=== PATIENT | female | born 1985 | race Caucasian/White ===

== ENCOUNTER 2020-04-12 21:14 | Inpatient (IN) ==
[2020-04-13] MEDS ORDERED: OXYTOCIN 30 UNITS/500 ML BAG IV PRN ×2 (01:04)
--- NOTE | 2020-04-13 01:08 | History & Physical Report ---
Date of Service April 13, 2020 Assessment & Plan (1) Gestational hypertension: Admission and Anticipated Discharge Date Admission Date: Admit to L&D. Labs, EFM/toco. Will insert crouch bulb for cervical ripening and use pitocin. History of Present Illness Chief Complaint: IOL Primary Care Provider: Johana Ferrari MD 34yo @ 36 08/27 with [place], here for IOL. AMA, CF carrier. Allergies Allergy/AdvReac Type Severity Reaction Status Date / Time No Known Allergies Allergy Verified 04/12/20 11:01 Home Medications Home Medications Medication Instructions Recorded Confirmed Type albuterol sulfate INHALATION PRN 05/26/19 04/12/20 History prenat.vits,pj,uoq-ddcv-ytaru 1 tab PO DAILY 05/26/19 04/12/20 History Patient History Medical History Advanced maternal age, primigravida Asthma Breast mass, left Encounter for anatomic survey H/O bladder infections Hx of varicella Missed Surgical History History of breast lump/mass excision History of tonsillectomy and adenoidectomy [place] teeth removed Family History Mother Lupus Antiphospholipid antibody positive Heart disease Hypertension Dyslipidemia Kidney disease Grandmother (Maternal) Diabetes Heart disease Hypertension Dyslipidemia Breast cancer Bladder cancer Grandfather (Maternal) Heart disease Hypertension Dyslipidemia Coronary heart disease Father Hypertension Dyslipidemia Hypothyroid Grandmother (Paternal) Adrenal cancer Social History Smoking Status: Never smoker Hx Alcohol Use: No Hx Substance Use: No Preferred Language: Lithuanian marital status: marital status details: Twan Lopez (33) [phone] Current Living Situation: Spouse Current Living Situation Comment: Spouse and 1 dog current occupational status: employed current occupation: [employer] Feels Safe at Home: Yes Safety Concerns: Feels Safe At This Time Review of Systems All systems reviewed & are unremarkable except as noted in HPI & below Physical Exam Physical Exam: FHT Cat 1 [place] rare SVE C/T/H Constitutional: WD/WN, vitals as above Respiratory: normal respiratory effort, lungs clear to auscultation no respiratory distress Cardiovascular: Rate/Rhythm: regular rate and regular rhythm Gastrointestinal (Abdomen): Inspection/Auscultation: abdomen normal to inspection Percussion/Palpation: abdomen soft; abdomen nontender Gravid. No s/s chorio or abruption. Skin: no rashes, warm and dry Psychiatric: A+Ox3, euthymic affect Results & Data ([facility]) Vital Signs (Past 12 Hours) Vital Signs Temp Pulse Resp BP 04/13/20 00:48 64 130/75 04/13/20 00:33 68 145/90 H 04/13/20 00:18 64 128/82 04/13/20 00:03 59 L 126/73 04/12/20 23:49 81 159/90 H 04/12/20 23:33 63 127/79 04/12/20 23:18 65 129/83 04/12/20 23:03 68 134/83 04/12/20 22:38 70 129/81 04/12/20 22:33 67 136/88 04/12/20 22:27 73 135/79 04/12/20 22:22 72 135/83 04/12/20 22:19 74 161/96 H 04/12/20 22:12 72 148/93 H 04/12/20 22:07 74 150/98 H 04/12/20 22:02 74 148/98 H 04/12/20 21:58 68 170/95 H 04/12/20 21:52 90 165/102 H 04/12/20 21:47 86 161/108 H 04/12/20 21:42 74 157/101 H 04/12/20 21:37 83 158/105 H 04/12/20 21:33 80 162/100 H 04/12/20 21:30 36.6 C 77 18 170/88 H 04/12/20 21:27 77 170/88 H Coding Level of Care Code None Diagnoses Gestational hypertension O13.9
--- NOTE | 2020-04-13 01:27 | Labor Progress Brief Note ---
Date of Service April 13, 2020 Subjective Vasquez balloon inserted, small blood-tinged mucus. Tolerated well. Results & Data ([facility]) Vital Signs (Past 12 Hours) Vital Signs Temp Pulse Resp BP 04/13/20 00:48 64 130/75 04/13/20 00:33 68 145/90 H 04/13/20 00:18 64 128/82 04/13/20 00:03 59 L 126/73 04/12/20 23:49 81 159/90 H 04/12/20 23:33 63 127/79 04/12/20 23:18 65 129/83 04/12/20 23:03 68 134/83 04/12/20 22:38 70 129/81 04/12/20 22:33 67 136/88 04/12/20 22:27 73 135/79 04/12/20 22:22 72 135/83 04/12/20 22:19 74 161/96 H 04/12/20 22:12 72 148/93 H 04/12/20 22:07 74 150/98 H 04/12/20 22:02 74 148/98 H 04/12/20 21:58 68 170/95 H 04/12/20 21:52 90 165/102 H 04/12/20 21:47 86 161/108 H 04/12/20 21:42 74 157/101 H 04/12/20 21:37 83 158/105 H 04/12/20 21:33 80 162/100 H 04/12/20 21:30 36.6 C 77 18 170/88 H 04/12/20 21:27 77 170/88 H Coding Level of Care Code None
[2020-04-13 01:42] LABS: Hematocrit (blood only) 40.6 % (37-47); Hemoglobin 13.6 g/dL (12.0-16.0); Mean Corpuscular Hemoglobin 29.8 pg (25-34); Mean Corpuscular Volume 88.8 fL (80-100); Mean Platelet Volume 12.3 fL (7.4-10.4); Platelet Count 177 K/uL (130-400); RDW Coefficient of Variation 13.3 % (11.5-14.5); RDW Standard Deviation 43.1 fL (36.4-46.3); Red Blood Count 4.57 M/uL (4.2-5.4); White Blood Count 10.37 K/uL (4.8-10.8)
[2020-04-13 01:45] LABS: Mean Corpuscular Hgb Conc 33.5 g/dL (32-36)
[2020-04-13] MEDS: LACTATED RINGER'S 1,000 ML IV PRN ×4 (03:25→22:37)
[2020-04-13 14:42] LABS: Basophils # (auto) 0.02 K/uL (0-0.2); Basophils % (auto) 0.1 %; Hematocrit (blood only) 41.6 % (37-47); Hemoglobin 14.1 g/dL (12.0-16.0); Immature Granulocytes # (auto) 0.09 K/uL (0.00-0.02); Immature Granulocytes % (auto) 0.6 %; Lymphocytes # (auto) 1.77 K/uL (1.2-3.4); Lymphocytes % (auto) 12.7 %; Mean Corpuscular Hemoglobin 30.1 pg (25-34); Mean Corpuscular Volume 88.9 fL (80-100); Monocytes # (auto) 0.88 K/uL (0.11-0.59); Monocytes % (auto) 6.3 %; Neutrophils # (auto) 11.22 K/uL (1.4-6.5); Neutrophils % (auto) 80.3 %; Platelet Count 161 K/uL (130-400); RDW Coefficient of Variation 13.3 % (11.5-14.5); RDW Standard Deviation 42.8 fL (36.4-46.3); Red Blood Count 4.68 M/uL (4.2-5.4); White Blood Count 13.98 K/uL (4.8-10.8)
[2020-04-13 14:46] LABS: Mean Corpuscular Hgb Conc 33.9 g/dL (32-36)
[2020-04-13 14:59] LABS: Albumin Level 2.5 gm/dl (3.4-5.0); Calcium 8.7 mg/dl (8.5-10.1); Creatinine Clr Calc Pharmacy 112.4 ml/min; Est GFR (African American) 121.7; Potassium 3.4 mmol/L (3.5-5.1)
[2020-04-13 15:02] LABS: Albumin Globulin Ratio 0.6 (0.9-2); Bilirubin,Total 0.5 mg/dl (0.2-1); Globulin 3.9 gm/dl (2.5-4.0); Total Protein 6.4 gm/dl (6.4-8.2)
--- NOTE | 2020-04-13 20:02 | Labor Progress Brief Note ---
Date of Service April 13, 2020 Subjective Getting tired from being up at the bedside. -WILLIS, vision change. Had severe range earlier when nursing change of shift occurred likely due to anxiety, repeat was mild range Assessment & Plan (1) Gestational hypertension: Continue monitoring BPs, no s/s pre-eclampsia had severe range likely due to anxiety with change of shift, normal repeats since Labor -pit just increased to 19, will continue to augment -s/p arom at earlier check Present on Admission?: Yes Admission and Anticipated Discharge Date Admission Date: April 13, 2020 Physical Exam Constitutional: AAO x 3, NAD Genitourinary: Manual OB Exam: + cervical dilation 3 cm, + cervical effacement 50% and + station (-3) OB Exam Monitor Tracing: + external uterine monitor used (irreg ctx) and + category I (145/mod/+accel/-decel) Results & Data ([facility]) Vital Signs (Past 12 Hours) Vital Signs Temp Pulse Resp BP 04/13/20 19:51 75 141/93 H 04/13/20 19:38 99 H 141/91 H 04/13/20 19:21 101 H 141/89 H 04/13/20 19:01 98.2 F 85 18 168/95 H 04/13/20 19:00 18 04/13/20 18:30 22 04/13/20 18:08 76 150/74 H 04/13/20 18:00 20 04/13/20 17:38 65 144/85 H 04/13/20 17:30 22 04/13/20 17:07 63 139/81 04/13/20 17:00 98.1 F 20 04/13/20 16:30 18 04/13/20 16:07 71 123/69 04/13/20 16:00 20 04/13/20 15:38 67 127/67 04/13/20 15:30 20 04/13/20 15:07 69 142/88 H 04/13/20 15:00 97.7 F 22 04/13/20 14:30 18 04/13/20 13:35 67 154/88 H 04/13/20 13:30 18 04/13/20 12:30 16 04/13/20 12:27 69 118/66 04/13/20 12:00 13 04/13/20 11:30 18 04/13/20 11:27 62 148/86 H 04/13/20 11:00 18 04/13/20 10:30 16 04/13/20 10:29 66 129/72 04/13/20 09:30 18 04/13/20 09:27 68 137/87 04/13/20 09:00 20 04/13/20 08:30 18 04/13/20 08:27 67 149/77 H Coding Level of Care Code None Diagnoses Gestational hypertension O13.9
[2020-04-13] MEDS ORDERED: CALCIUM CARBONATE 500 MG CHEWABLE TAB PO PRN (21:17)
[2020-04-13] MEDS ORDERED: CALCIUM CARBONATE 500 MG CHEWABLE TAB ONE (21:20)
--- NOTE | 2020-04-13 21:40 | Labor Progress Brief Note ---
Date of Service April 13, 2020 Subjective Pt endorsing some nausea and chest discomfort while laying down, unable to note quality. Denies chest pain or SOB. Tums provided and pt repositioned sitting up, nausea improved. Notes ctx are beginning to worsen Assessment & Plan (1) Gestational hypertension: Chest discomfort appears MSK related due to reproducibility. VSS, exam wnl, O2 sat 100%. Other symptoms also improving with pt repositioning and tums, will continue to monitor BP elevated with repositioning, will re-check Present on Admission?: Yes Admission and Anticipated Discharge Date Admission Date: April 13, 2020 Physical Exam Respiratory: normal respiratory effort; no labored breathing Auscultation: lungs clear to auscultation bilaterally Cardiovascular: RRR, no murmur, no edema Chest (Breasts): Additional Comments: Able to reproduce location of discomfort on R midsternal border, no masses palpated Results & Data ([facility]) Vital Signs (Past 12 Hours) Vital Signs Temp Pulse Resp BP Pulse Ox 04/13/20 21:32 84 100 04/13/20 21:25 80 165/98 H 04/13/20 21:06 80 136/84 04/13/20 20:52 98.1 F 64 18 137/78 04/13/20 20:36 67 139/80 04/13/20 20:21 71 133/81 04/13/20 20:07 67 18 138/81 04/13/20 19:51 75 141/93 H 04/13/20 19:38 99 H 141/91 H 04/13/20 19:21 101 H 141/89 H 04/13/20 19:01 98.2 F 85 18 168/95 H 04/13/20 19:00 18 04/13/20 18:30 22 04/13/20 18:08 76 150/74 H 04/13/20 18:00 20 04/13/20 17:38 65 144/85 H 04/13/20 17:30 22 04/13/20 17:07 63 139/81 04/13/20 17:00 98.1 F 20 04/13/20 16:30 18 04/13/20 16:07 71 123/69 04/13/20 16:00 20 04/13/20 15:38 67 127/67 04/13/20 15:30 20 04/13/20 15:07 69 142/88 H 04/13/20 15:00 97.7 F 22 04/13/20 14:30 18 04/13/20 13:35 67 154/88 H 04/13/20 13:30 18 04/13/20 12:30 16 04/13/20 12:27 69 118/66 04/13/20 12:00 13 04/13/20 11:30 18 04/13/20 11:27 62 148/86 H 04/13/20 11:00 18 04/13/20 10:30 16 04/13/20 10:29 66 129/72 Coding Level of Care Code None Diagnoses Gestational hypertension O13.9
[2020-04-13] MEDS ORDERED: BUPIVACAINE 0.25% 30 ML VIAL ONE (21:51)
[2020-04-13] MEDS ORDERED: fentaNYL citrate 100 MCG/2 ML VIAL ONE (21:51)
[2020-04-13] MEDS ORDERED: ePHEDrine sulfate 50 MG/ML AMP ONE (21:51)
[2020-04-13] MEDS ORDERED: fentaNYL 2MCG/ML ROPIV 1.25MG/ML 100 ML BAG EPI ONE (21:52)
[2020-04-13] MEDS ORDERED: ONDANSETRON INJ 2 MG/ML 2 ML VIAL IV PRN (22:16)
[2020-04-13] MEDS ORDERED: DiphenhydrAMINE HCL 50 MG/ML VIAL IV PRN (22:16)
[2020-04-13] MEDS ORDERED: ePHEDrine sulfate 50 MG/ML AMP IV PRN (22:16)
[2020-04-13] MEDS ORDERED: PROMETHAZINE HCL 25 MG in SODIUM CHLORIDE 0.9% 50 ML IV PRN (22:16)
[2020-04-13] MEDS ORDERED: NALOXONE HCL 0.4 MG/1 ML VIAL/CARP IV PRN (22:16)
[2020-04-13] MEDS ORDERED: NALOXONE HCL 1 MG in SODIUM CHLORIDE 0.9% 1000ML 1,000 ML IV PRN (22:16)
[2020-04-13] MEDS ORDERED: fentaNYL 2MCG/ML ROPIV 1.25MG/ML 100 ML BAG EPI PRN (22:16)
--- NOTE | 2020-04-13 22:16 | Anesthesiology Consultation ---
Date of Service April 13, 2020 Assessment & Plan ASA ASA2 Proposed Anesthesia Anesthesia Type: Labor Epidural Risk / Benefits Reviewed With: PT / POA / Parent / Guardian, Accepts Plan and Informed Consent Obtained History Height/Weight Height: 5 ft 4 in Weight: 85.729 kg Allergies Allergy/AdvReac Type Severity Reaction Status Date / Time No Known Allergies Allergy Verified 04/12/20 11:01 Medications Home Medications Medication Instructions Recorded Confirmed Last Taken prenat.vits,pj,rbp-rriw-eejdf 1 tab PO DAILY 05/26/19 04/13/20 04/12/20 albuterol sulfate 0.63 mg INHALATION QID PRN 04/13/20 04/13/20 Unknown Active Medications Generic Name Dose Route Start Last Admin Trade Name Freq PRN Reason Stop Dose Admin Lactated Ringer's 1,000 mls @ 125 mls/hr 04/13/20 01:04 04/13/20 22:37 Lr IV 04/15/20 01:03 125 mls/hr .Q8H PRN Administration L&D Protocol Protocol Oxytocin 30 units in 500 mls @ 20 mls/hr 04/13/20 01:04 04/13/20 20:55 Pitocin IV 04/15/20 01:03 1.2 units/hr .Q24H PRN 20 mls/hr Labor Induction/Augmentation Titration Protocol 1.2 UNITS/HR Past Medical History Medical History Advanced maternal age, primigravida Asthma Breast mass, left Encounter for anatomic survey H/O bladder infections Hx of varicella Missed Exercise / Class Metabolic Activity II 4-5 Yardwork/Stairs/Walk up hill Past Family History Family History Mother Lupus Antiphospholipid antibody positive Heart disease Hypertension Dyslipidemia Kidney disease Grandmother (Maternal) Diabetes Heart disease Hypertension Dyslipidemia Breast cancer Bladder cancer Grandfather (Maternal) Heart disease Hypertension Dyslipidemia Coronary heart disease Father Hypertension Dyslipidemia Hypothyroid Grandmother (Paternal) Adrenal cancer Past Surgical History Surgical History History of breast lump/mass excision History of tonsillectomy and adenoidectomy [place] teeth removed Past Anesthesia History No Hx of Anesthesia Complications and No Family Hx of Anesthesia Complications History of PONV No Hx of PONV and No Hx of Motion Sickness Social History Smoking Status: Never smoker Hx Alcohol Use: No Hx Substance Use: No Review of Systems denies fever/cough/ colds/ chest pain/ SOB/ PATTIE Constitutional: no fever and no chills Respiratory: no cough and no dyspnea denies PATTIE Cardiovascular: no chest pain and no dyspnea on exertion Physical Exam Vital Signs Last Vital Signs Temp 36.7 C 04/13/20 20:52 Pulse 88 04/13/20 22:39 Resp 18 04/13/20 20:52 BP 131/78 04/13/20 22:39 Pulse Ox 98 04/13/20 22:35 ENMT Mouth: no TMJ abnormality and no dentition abnormality Thyromental Distance: > or= 3.5 Finger Breadths Mallampati Class: II Neck neck extension not limited Respiratory normal respiratory effort; no respiratory distress Auscultation: lungs clear to auscultation bilaterally Cardiovascular Rate/Rhythm: regular rate and regular rhythm Neurologic moves all extremities Psychiatric Orientation: alert and oriented x 3 Testing Laboratory Results 04/13/20 14:31 04/13/20 14:31
--- NOTE | 2020-04-14 00:24 | Labor Progress Brief Note ---
Date of Service April 14, 2020 Subjective Comfortable after epidural. FHT Cat 1 [place] Q 2-3 SVE 4/50/-2 IUPC inserted. Assessment & Plan Admission and Anticipated Discharge Date Admission Date: April 13, 2020 Results & Data ([facility]) Vital Signs (Past 12 Hours) Vital Signs Temp Pulse Resp BP Pulse Ox 04/14/20 00:20 78 99 04/14/20 00:15 81 100 04/14/20 00:10 79 99 04/14/20 00:05 73 100 04/14/20 00:00 69 100 04/13/20 23:55 70 100 04/13/20 23:52 65 117/74 04/13/20 23:50 67 99 04/13/20 23:45 68 99 04/13/20 23:40 67 97 04/13/20 23:38 61 113/68 04/13/20 23:35 69 97 04/13/20 23:30 69 98 04/13/20 23:25 68 99 04/13/20 23:23 66 118/74 04/13/20 23:20 66 97 04/13/20 23:15 76 97 04/13/20 23:10 67 97 04/13/20 23:09 67 119/70 04/13/20 23:05 69 97 04/13/20 23:00 70 99 04/13/20 22:55 73 98 04/13/20 22:52 86 129/80 04/13/20 22:50 75 98 04/13/20 22:46 36.7 C 83 18 125/79 04/13/20 22:45 81 98 04/13/20 22:41 90 128/80 04/13/20 22:40 92 H 97 04/13/20 22:39 88 131/78 04/13/20 22:37 90 139/78 04/13/20 22:35 80 98 04/13/20 22:34 78 181/87 H 04/13/20 22:31 82 141/97 H 04/13/20 22:30 82 98 04/13/20 22:20 77 178/103 H 04/13/20 21:46 79 138/89 04/13/20 21:36 81 166/85 H 04/13/20 21:32 84 100 04/13/20 21:25 80 165/98 H 04/13/20 21:06 80 136/84 04/13/20 20:52 36.7 C 64 18 137/78 04/13/20 20:36 67 139/80 04/13/20 20:21 71 133/81 04/13/20 20:07 67 18 138/81 04/13/20 19:51 75 141/93 H 04/13/20 19:38 99 H 141/91 H 04/13/20 19:21 101 H 141/89 H 04/13/20 19:01 36.8 C 85 18 168/95 H 04/13/20 19:00 18 04/13/20 18:30 22 04/13/20 18:08 76 150/74 H 04/13/20 18:00 20 04/13/20 17:38 65 144/85 H 04/13/20 17:30 22 04/13/20 17:07 63 139/81 04/13/20 17:00 36.7 C 20 04/13/20 16:30 18 04/13/20 16:07 71 123/69 04/13/20 16:00 20 04/13/20 15:38 67 127/67 04/13/20 15:30 20 04/13/20 15:07 69 142/88 H 04/13/20 15:00 36.5 C 22 04/13/20 14:30 18 04/13/20 13:35 67 154/88 H 04/13/20 13:30 18 04/13/20 12:30 16 04/13/20 12:27 69 118/66 Coding Level of Care Code None
[2020-04-14] MEDS: LACTATED RINGER'S 1,000 ML IV PRN (02:32)
[2020-04-14] MEDS ORDERED: CITRIC ACID/SODIUM CITRATE 15 ML UDC PO SCH (06:45)
[2020-04-14] MEDS ORDERED: CEFAZOLIN 2000MG 2,000 MG/15 ML SYR IV SCH (06:45)
[2020-04-14] MEDS ORDERED: LIDOCAINE/EPINEPHRINE 2% 1:200,000 20 ML SDV ONE (07:09)
--- NOTE | 2020-04-14 07:14 | History & Physical Bridge Note ---
Date of Service April 14, 2020 History & Physical Bridge Note I have examined the patient, reviewed the History & Physical and in the interval since the performance of the History & Physical. Patient has been laboring all night, has had 6+ hours with IUPC, we were never able to achieve adequate contractions. Pitocin since yesterday. Cervix has not progressed beyond 4cm, and is unchanged over 2 exams >6h apart. I discussed with her this lack of ability to get her into active labor, and she agrees that she would like to undergo section. Counseled, RBA reviewed, informed consent. Will proceed to OR.
[2020-04-14] MEDS ORDERED: miSOPROStoL 200 MCG TAB ONE (08:00)
[2020-04-14] MEDS ORDERED: OXYTOCIN 10 UNITS/ML VIAL ONE (08:18)
[2020-04-14] MEDS ORDERED: MoRPHine SULFATE PF 1 MG/ML 10 ML AMP/VIAL ONE (08:20)
[2020-04-14 08:49] LABS: Base Excess Cord Arterial Bld -2.7 mEq/L (-9-1.8); CO2 Cord Arterial Blood 58 mmHg (39.1-73.5); HCO3 Cord Arterial Blood 26 mmol/L (19.7-28.5); PO2 Cord Arterial Blood 18 mmHg (4.1-31.7); pH Cord Arterial Blood 7.26 (7.1-7.38)
[2020-04-14] MEDS ORDERED: NALOXONE HCL 1 MG in SODIUM CHLORIDE 0.9% 1000ML 1,000 ML IV PRN (08:54)
[2020-04-14] MEDS ORDERED: NALOXONE HCL 0.4 MG/1 ML VIAL/CARP IV PRN (08:54)
[2020-04-14] MEDS ORDERED: MEPERIDINE HCL 25 MG/ML CARP/VIAL IV PRN (08:54)
[2020-04-14] MEDS ORDERED: ONDANSETRON INJ 2 MG/ML 2 ML VIAL IV PRN (08:54)
[2020-04-14] MEDS ORDERED: MoRPHine SULFATE PF 1 MG/ML 10 ML AMP/VIAL INT SPINAL ONE (08:54)
[2020-04-14] MEDS ORDERED: LACTATED RINGER'S 500 ML IV PRN (08:54)
[2020-04-14] MEDS ORDERED: MoRPHine SULFATE 2 MG/ML CARP IV PRN (08:54)
[2020-04-14] MEDS ORDERED: PROMETHAZINE HCL 25 MG in SODIUM CHLORIDE 0.9% 50 ML IV PRN (08:54)
[2020-04-14] MEDS ORDERED: METOCLOPRAMIDE HCL 10 MG in SODIUM CHLORIDE 0.9% 50 ML IV PRN (08:54)
[2020-04-14] MEDS ORDERED: NALOXONE HCL 0.08 MG in SYRINGE 1.8 ML IV PRN (08:54)
[2020-04-14] MEDS ORDERED: DiphenhydrAMINE HCL 50 MG/ML VIAL IV PRN (08:54)
[2020-04-14] MEDS ORDERED: ePHEDrine sulfate 50 MG/ML AMP IV PRN (08:54)
--- NOTE | 2020-04-14 08:54 | Operative Report ---
PG Post Operative Report Pre & Post Diagnosis Operation Date: 04/14/20 07:20 Pre: 37 weeks, IOL for gest hypertension, failure to progress in labor Post: same I identified the patient and participated in the time-out.: Yes Procedure Operation Date: 04/14/20 07:20 Primary low transverse section Surgeon Ledy Su, DO Patient Sitter Maria De Jesus Carreon RN Estimated Blood Loss 600 Findings Consistent with Post-Op Diagnosis Normal uterus, tubes, ovaries Viable female , Apgars 8/9, Weight 6#1.4oz. Specimens placenta, cord blood, cord gas Drains crouch clear yellow Anesthesia Type L&D Only Epidural Exists Complications none Disposition Accompanied Patient To Recovery: Yes Disposition: L&D Indications 34yo @ 37 09/24, IOL for gHTN. Unable to dilate beyond 4cm, and after 24+h attempts at labor, patient elected for primary . Description of Procedure The patient was seen in her labor and delivery room, risks benefits and alternatives to surgery were reviewed. Informed consent obtained. Questions were answered. She was taken to the operating room, epidural redosed. She was then prepared and draped in the usual sterile fashion in the supine position with a leftward tilt. Timeout was confirmed. A Pfannenstiel skin incision was made with a scalpel, and carried through to the underlying layer of fascia. Fascia was nicked at midline, and this incision was extended bilaterally. The superior aspect of the fascial incision was grasped with Opal clamps x2, elevated off the underlying rectus abdominis muscles, and dissected sharply and bluntly. In similar fashion, the inferior aspect of the fascial incision was dissected. The rectus abdominis muscles were , and the peritoneum was entered bl untly digitally. This was extended bilaterally. The bladder flap was taken down carefully using Metzenbaum scissors. Using a new scalpel, a low transverse uterine incision was created. The infant was delivered from a cephalic presentation. The head delivered, followed by shoulders and body. Spontaneous cry on the field. The cord was doubly clamped and cut, and the was handed off to the waiting marketing analytics specialist. A segment was retained for cord gases. Cord blood was obtained. The placenta was delivered spontaneously intact. The uterus was exteriorized, and cleared of all clots and debris. The hysterotomy incision was reapproximated using 0 Vicryl in a running locked stitch. A second layer of the same suture was used to imbricate the incision. Posterior uterus was evaluated and normal. The uterus was returned to the abdomen, and gutters were cleared of clots and debris. Excellent hemostasis was observed. The fascial incision was reapproximated using 0 Vicryl in a running stitch. The subcutaneous tissue was irrigated, and reapproximated using 2-0 plain gut in a running stitch. The skin was reapproximated using 4-0 Vicryl in a running subcuticular stitch. Steri-Strips and a bandage were applied. The patient tolerated the procedure well, and will be taken to the recovery area in stable and good condition. I attest to the content of the Intraoperative Record and any orders documented therein. Any exceptions are noted below.
[2020-04-14 08:55] LABS: Base Excess Cord Venous Blood -0.7 mEq/L (-7.7-1.9); Cord Venous Blood HCO3 25 mmol/L (18.4-26.8); Cord Venous Blood PCO2 47 mmHg (30.4-57.2); Cord Venous Blood PO2 24 mmHg (14.1-43.3); Cord Venous Blood pH 7.35 (7.20-7.44)
--- NOTE | 2020-04-14 08:56 | Anesthesia Procedure Note ---
Date of Service April 14, 2020 Anesthesia Post Epidural Note Vital Signs Vital Signs: Temp Pulse Resp BP Pulse Ox 36.4 C L 90 18 144/80 H 100 04/14/20 05:08 04/14/20 08:53 04/14/20 05:08 04/14/20 08:49 04/14/20 08:53 Pain Intensity Bilateral Abdomen: Pain Intensity: 0 Notes Mental Status: alert / awake / arousable Nausea / Vomiting: adequately controlled Pain: adequately controlled Airway Patency, RR, SpO2: stable & adequate BP & HR: stable & adequate Hydration State: stable & adequate Neuraxial Anesthesia: was administered and sensory block is resolving Anesthetic Complications: no major complications apparent and Pt Satisfied with anesthetic care Epidural: Removed without complications and With tip intact
[2020-04-14 08:57] LABS: Oxygen Sat Cord Arterial Blood < 60.0 % (<60)
[2020-04-14 08:59] LABS: O2 Saturation Cord Venous Bld < 60.0 % (<68)
[2020-04-14] MEDS ORDERED: NO NARCOTICS OR SEDATIVES SCH (09:00)
[2020-04-14] MEDS ORDERED: SODIUM CHLORIDE 0.9% 1000ML 1,000 ML IV SCH (09:00)
[2020-04-14] MEDS ORDERED: HYDROmorphone INJ 1 MG/ML SYRINGE IV PRN (09:12)
[2020-04-14] MEDS ORDERED: CARBOPROST TROMETHAMINE 250 MCG/ML AMPUL IM ONE (09:19)
[2020-04-14] MEDS: KETOROLAC 30 MG/ML VIAL IV PRN ×3 (09:46→23:45)
[2020-04-14] MEDS ORDERED: MAGNESIUM HYDROXIDE SUSP 30 ML UDC PO PRN (09:52)
[2020-04-14] MEDS ORDERED: BENZOCAINE 20% AER SPR 82.5 GM CAN EXT PRN (09:52)
[2020-04-14] MEDS ORDERED: DIPHTHERIA/TETANUS/PERTUSSIS 0.5 ML SYR/VIAL IM ONE (09:52)
[2020-04-14] MEDS ORDERED: miSOPROStoL 200 MCG TAB PR ONE (09:52)
[2020-04-14] MEDS ORDERED: HYDROCORTISONE ACETATE 25 MG SUPP PR PRN (09:52)
[2020-04-14] MEDS ORDERED: NON-FORMULARY MEDICATION (Prenat.Vits,Cal,Min-Iron-Folic 1 TAB) PO SCH (09:52)
[2020-04-14] MEDS ORDERED: LACTATED RINGER'S 1,000 ML IV SCH (09:52)
[2020-04-14] MEDS ORDERED: SENNA 8.6 MG TAB PO PRN (09:52)
[2020-04-14] MEDS ORDERED: SUPERCREAM 0.870% 15 GM JAR EXT PRN (09:52)
[2020-04-14] MEDS ORDERED: ALBUTEROL 0.083% NEBU SOLN 3 ML VIAL NEB PRN (10:09)
--- NOTE | 2020-04-14 10:37 | Anesthesiology Progress Note ---
Date of Service April 14, 2020 Anesthesia Post Procedure Vital Signs Vital Signs: Temp Pulse Resp BP Pulse Ox 04/14/20 10:33 92 H 97 04/14/20 10:30 82 165/78 H 04/14/20 10:28 88 97 04/14/20 10:23 88 97 04/14/20 10:19 86 170/78 H 04/14/20 10:18 88 98 04/14/20 10:14 88 185/79 H 04/14/20 10:13 98 H 99 04/14/20 10:08 93 H 100 04/14/20 10:03 88 100 04/14/20 09:59 92 H 182/104 H 04/14/20 09:58 97 H 99 04/14/20 09:53 94 H 100 04/14/20 09:51 96 H 179/77 H 04/14/20 09:50 171 H 205/101 H 04/14/20 09:48 37.0 C 88 18 97 04/14/20 09:43 106 H 100 04/14/20 09:39 113 H 140/75 04/14/20 09:38 95 H 20 100 04/14/20 09:33 96 H 95 04/14/20 09:29 98 H 155/77 H 04/14/20 09:28 97 H 20 100 04/14/20 09:23 90 100 04/14/20 09:19 96 H 160/78 H 04/14/20 09:18 93 H 20 99 04/14/20 09:13 95 H 99 04/14/20 09:10 69 149/82 H 04/14/20 09:08 92 H 20 99 04/14/20 09:03 93 H 96 04/14/20 09:00 93 H 150/79 H 04/14/20 08:58 95 H 20 100 04/14/20 08:53 90 100 04/14/20 08:49 86 144/80 H 04/14/20 08:48 36.4 C L 84 20 98 04/14/20 07:15 98 H 98 04/14/20 07:10 83 99 04/14/20 07:07 75 147/87 H 04/14/20 07:05 76 100 04/14/20 07:00 79 98 04/14/20 06:55 82 99 04/14/20 06:52 75 134/85 04/14/20 06:50 84 99 04/14/20 06:45 86 98 04/14/20 06:40 85 99 04/14/20 06:38 82 139/90 04/14/20 06:35 88 98 04/14/20 06:30 79 99 04/14/20 06:25 78 100 04/14/20 06:23 78 137/89 04/14/20 06:20 66 98 04/14/20 06:15 74 98 04/14/20 06:10 69 97 04/14/20 06:08 71 132/82 04/14/20 06:05 73 97 04/14/20 06:00 73 98 04/14/20 05:55 74 98 04/14/20 05:53 73 122/80 04/14/20 05:50 70 98 04/14/20 05:45 72 98 04/14/20 05:40 73 99 04/14/20 05:38 71 129/83 04/14/20 05:35 71 99 04/14/20 05:30 71 98 04/14/20 05:25 66 99 04/14/20 05:23 67 125/84 04/14/20 05:20 69 99 04/14/20 05:15 66 99 04/14/20 05:10 67 98 04/14/20 05:08 36.4 C L 68 18 128/85 04/14/20 05:05 74 98 04/14/20 05:00 82 98 04/14/20 04:55 78 98 04/14/20 04:53 70 131/81 04/14/20 04:50 80 98 04/14/20 04:45 78 98 04/14/20 04:40 81 98 04/14/20 04:38 72 135/94 04/14/20 04:35 80 98 04/14/20 04:30 73 99 04/14/20 04:25 76 98 04/14/20 04:23 65 128/82 04/14/20 04:20 65 98 04/14/20 04:15 68 97 04/14/20 04:10 63 98 04/14/20 04:08 64 18 133/82 04/14/20 04:05 61 97 04/14/20 04:00 62 97 04/14/20 03:55 59 L 97 04/14/20 03:53 62 119/75 04/14/20 03:50 62 96 04/14/20 03:45 64 97 04/14/20 03:40 60 97 04/14/20 03:38 56 L 133/79 04/14/20 03:35 59 L 97 04/14/20 03:30 68 95 04/14/20 03:25 61 96 04/14/20 03:23 67 127/81 04/14/20 03:20 67 96 04/14/20 03:15 64 97 04/14/20 03:10 62 97 04/14/20 03:08 59 L 18 133/81 04/14/20 03:05 64 97 04/14/20 03:00 36.6 C 67 98 04/14/20 02:55 60 97 04/14/20 02:53 63 129/82 04/14/20 02:50 65 98 04/14/20 02:47 70 87 L 04/14/20 02:45 64 97 04/14/20 02:40 62 98 04/14/20 02:38 61 131/76 04/14/20 02:35 64 97 04/14/20 02:30 61 98 04/14/20 02:25 65 98 04/14/20 02:24 62 125/77 04/14/20 02:20 65 96 04/14/20 02:15 65 96 04/14/20 02:10 65 96 04/14/20 02:08 64 123/74 04/14/20 02:05 65 97 04/14/20 02:00 65 97 04/14/20 01:55 64 97 04/14/20 01:53 62 123/76 04/14/20 01:50 67 97 04/14/20 01:45 66 97 04/14/20 01:40 66 97 04/14/20 01:38 61 131/77 04/14/20 01:35 68 97 04/14/20 01:30 71 99 04/14/20 01:25 71 99 04/14/20 01:22 70 117/76 04/14/20 01:20 69 98 04/14/20 01:15 66 98 04/14/20 01:10 66 99 04/14/20 01:07 36.7 C 68 18 117/73 2520 01:05 68 96 20 01:00 68 96 20 00:55 68 96 20 00:52 68 114/71 20 00:50 71 96 20 00:45 70 97 20 00:40 71 98 20 00:37 67 122/76 2520 00:35 68 98 20 00:30 66 98 20 00:25 69 99 20 00:23 71 123/79 20 00:20 78 99 20 00:15 81 100 20 00:10 79 99 20 00:05 73 100 04/14/20 00:00 69 100 20 23:55 70 100 20 23:52 65 18 117/74 2420 23:50 67 99 20 23:45 68 99 20 23:40 67 97 20 23:38 61 113/68 2420 23:35 69 97 20 23:30 69 98 20 23:25 68 99 20 23:23 66 118/74 20 23:20 66 97 20 23:15 76 97 20 23:10 67 97 20 23:09 67 119/70 2420 23:05 69 97 20 23:00 70 99 20 22:55 73 98 2420 22:52 86 18 129/80 24/20 22:50 75 98 24/20 22:46 36.7 C 83 18 125/79 24/20 22:45 81 98 24/20 22:41 90 128/80 2420 22:40 92 H 97 2420 22:39 88 131/78 2420 22:37 90 139/78 24/20 22:35 80 98 2420 22:34 78 181/87 H 2420 22:31 82 141/97 H 2420 22:30 82 98 04/13/20 22:20 77 178/103 H 04/13/20 21:46 79 138/89 04/13/20 21:36 81 166/85 H 04/13/20 21:32 84 100 04/13/20 21:25 80 165/98 H 04/13/20 21:06 80 136/84 04/13/20 20:52 36.7 C 64 18 137/78 04/13/20 20:36 67 139/80 04/13/20 20:21 71 133/81 04/13/20 20:07 67 18 138/81 04/13/20 19:51 75 141/93 H 04/13/20 19:38 99 H 141/91 H 04/13/20 19:21 101 H 141/89 H 04/13/20 19:01 36.8 C 85 18 168/95 H 04/13/20 19:00 18 04/13/20 18:30 22 04/13/20 18:08 76 150/74 H 04/13/20 18:00 20 04/13/20 17:38 65 144/85 H 04/13/20 17:30 22 04/13/20 17:07 63 139/81 04/13/20 17:00 36.7 C 20 04/13/20 16:30 18 04/13/20 16:07 71 123/69 04/13/20 16:00 20 04/13/20 15:38 67 127/67 04/13/20 15:30 20 04/13/20 15:07 69 142/88 H 04/13/20 15:00 36.5 C 22 04/13/20 14:30 18 04/13/20 13:35 67 154/88 H 04/13/20 13:30 18 04/13/20 12:30 16 04/13/20 12:27 69 118/66 04/13/20 12:00 13 04/13/20 11:30 18 04/13/20 11:27 62 148/86 H 04/13/20 11:00 18 Pain Intensity Bilateral Abdomen: Pain Intensity: 6 Transfer of Care Handoff Completed per policy Notes Mental Status: alert / awake / arousable and participated in evaluation Patient Amnestic to Procedure: Yes Nausea / Vomiting: adequately controlled Pain: adequately controlled Airway Patency, RR, SpO2: stable & adequate BP & HR: stable & adequate Hydration State: stable & adequate Neuraxial Anesthesia: was administered and sensory block is resolving Anesthetic Complications: no major complications apparent
[2020-04-14] MEDS: OXYTOCIN 30 UNITS in LACTATED RINGER'S 1,000 ML IV SCH ×2 (12:12→20:36)
[2020-04-14] MEDS: SIMETHICONE 80 MG CHEW PO SCH ×3 (14:34→20:36)
[2020-04-14] MEDS: DOCUSATE SODIUM 100 MG CAP PO SCH (20:36)
[2020-04-15] MEDS ORDERED: DC INTRASPINAL MORPHINE ONE (02:54)
[2020-04-15] MEDS ORDERED: ONDANSETRON INJ 2 MG/ML 2 ML VIAL IV PRN (02:56)
[2020-04-15] MEDS ORDERED: PROMETHAZINE HCL 25 MG in SODIUM CHLORIDE 0.9% 50 ML IV PRN (02:56)
[2020-04-15] MEDS ORDERED: KETOROLAC 30 MG/ML VIAL IV PRN (02:56)
[2020-04-15] MEDS ORDERED: DiphenhydrAMINE HCL 50 MG/ML VIAL IV PRN (02:56)
[2020-04-15 06:37] LABS: Basophils # (auto) 0.02 K/uL (0-0.2); Basophils % (auto) 0.2 %; Eosinophils # (auto) 0.05 K/uL (0-0.5); Eosinophils % (auto) 0.4 %; Hematocrit (blood only) 33.9 % (37-47); Hemoglobin 11.3 g/dL (12.0-16.0); Immature Granulocytes # (auto) 0.07 K/uL (0.00-0.02); Immature Granulocytes % (auto) 0.5 %; Lymphocytes # (auto) 1.77 K/uL (1.2-3.4); Lymphocytes % (auto) 13.8 %; Mean Corpuscular Hemoglobin 29.9 pg (25-34); Mean Corpuscular Hgb Conc 33.3 g/dL (32-36); Mean Corpuscular Volume 89.7 fL (80-100); Mean Platelet Volume 12.2 fL (7.4-10.4); Monocytes # (auto) 1.09 K/uL (0.11-0.59); Monocytes % (auto) 8.5 %; Neutrophils # (auto) 9.85 K/uL (1.4-6.5); Neutrophils % (auto) 76.6 %; Platelet Count 156 K/uL (130-400); RDW Coefficient of Variation 13.3 % (11.5-14.5); RDW Standard Deviation 43.7 fL (36.4-46.3); Red Blood Count 3.78 M/uL (4.2-5.4); White Blood Count 12.85 K/uL (4.8-10.8)
[2020-04-15] MEDS: SIMETHICONE 80 MG CHEW PO SCH ×4 (08:25→20:04)
[2020-04-15] MEDS: PRENATAL VITAMIN 1 TAB PO SCH (08:26)
[2020-04-15] MEDS: FERROUS SULFATE 325 MG TAB PO SCH (08:26)
[2020-04-15] MEDS: DOCUSATE SODIUM 100 MG CAP PO SCH ×2 (08:26→20:04)
--- NOTE | 2020-04-15 08:50 | Obstetrical Progress Note ---
Date of Service April 15, 2020 Assessment & Plan (1) Delivery by section: appropriate post-op/ course B/P stable continue current care plan (2) Gestational hypertension: Day #:: 1 Subjective Ambulation: ambulating normally Voiding: no voiding problems Passing Gas:: Yes Diet Tolerance:: regular diet Lochia:: Small Feeding Type:: breast feeding no po pain meds yet. Review of Systems All systems reviewed & are unremarkable except as noted in HPI & below Physical Exam Constitutional WD/WN, vitals as above Psychiatric A+Ox3, euthymic affect Genitourinary OB Exam Abdomen: + fundal height Fundus: + firm and + relation to umbilicus (1 below U) Results & Data ([facility]) Vital Signs (Past 12 Hours) Vital Signs Temp Pulse Resp BP Pulse Ox 04/15/20 04:15 98.1 F 70 18 120/70 98 04/15/20 02:38 18 96 04/15/20 01:30 18 98 04/15/20 00:30 18 96 04/14/20 23:30 98.6 F 74 18 127/80 96 04/14/20 22:00 20 97
[2020-04-15] MEDS: IBUPROFEN 600 MG TAB PO PRN ×3 (10:20→20:05)
[2020-04-15] MEDS: OXYCODONE/ACETAMINOPHEN 5mg/325mg TAB PO PRN ×2 (10:20→20:04)
[2020-04-15] MEDS ORDERED: bisacodyL 5 MG TABEC PO SCH (20:00)
[2020-04-16] MEDS: IBUPROFEN 600 MG TAB PO PRN ×2 (03:18→08:31)
[2020-04-16 07:03] LABS: Hemoglobin 11.2 g/dL (12.0-16.0)
--- NOTE | 2020-04-16 08:11 | Obstetrical Progress Note ---
Date of Service April 16, 2020 Assessment & Plan (1) Gestational hypertension: (2) Delivery by section: pt ready for d/c. bps are labile but none severe range. mostly wnl range. stable. instructions reviewed, f/u 6 wks pp. discussed pain med use. Day #:: 2 Subjective Ambulation: ambulating normally Voiding: no voiding problems Passing Gas:: Yes Diet Tolerance:: regular diet Lochia:: Small Feeding Type:: breast feeding no pain issues, when needs percocet it helps. denies andrade. Physical Exam Constitutional WD/WN, vitals as above Respiratory normal respiratory effort, lungs clear to auscultation Cardiovascular Rate/Rhythm: regular rate and regular rhythm Gastrointestinal (Abdomen) Inspection/Auscultation: abdomen normal to inspection and + abdominal surgical incision (c/d/i with dermabond) Percussion/Palpation: abdomen soft; abdomen nontender Fundus firm 2cm down Musculoskeletal nt calves no edema Neurologic grossly normal Psychiatric A+Ox3, euthymic affect Results & Data ([facility]) Vital Signs (Past 12 Hours) Vital Signs Temp Pulse Resp BP Pulse Ox 04/16/20 03:20 70 140/95 04/15/20 23:20 98.1 F 76 16 149/92 H 96
[2020-04-16] MEDS: OXYCODONE/ACETAMINOPHEN 5mg/325mg TAB PO PRN (08:31)
[2020-04-16] MEDS: SIMETHICONE 80 MG CHEW PO SCH (08:32)
[2020-04-16] MEDS: PRENATAL VITAMIN 1 TAB PO SCH (08:32)
[2020-04-16] MEDS: FERROUS SULFATE 325 MG TAB PO SCH (08:32)
[2020-04-16] MEDS: DOCUSATE SODIUM 100 MG CAP PO SCH (08:32)
[2020-04-16] MEDS ORDERED: bisacodyL 10 MG SUPP PR PRN (08:48)
--- NOTE | 2020-04-17 17:21 | Discharge Summary ---
Date of Service April 17, 2020 Admission HPI Per Admitting Provider 34yo @ 36 08/27 with [place], here for IOL. AMA, CF carrier. Admission Exam (Per Admitting) Constitutional WD/WN, vitals as above Respiratory normal respiratory effort, lungs clear to auscultation no respiratory distress Cardiovascular Rate/Rhythm: regular rate and regular rhythm Gastrointestinal (Abdomen) Inspection/Auscultation: abdomen normal to inspection Percussion/Palpation: abdomen soft; abdomen nontender Skin no rashes, warm and dry Psychiatric A+Ox3, euthymic affect Discharge Data Procedures Performed Operation Date: 04/14/20 07:20 Actual Procedures p Section in [facility] Ledy Su DO Hospital Course (1) Gestational hypertension: Admitted for IOL, failure to progress into labor, elected to proceed with - see op note for details. (2) Delivery by section: Discharged POD#2, instructions reviewed, f/u 6 wks pp. Coding Level of Care Code None Diagnoses Gestational hypertension O13.9 Delivery by section
== END 2020-04-16 12:25 | disposition home or self-care (01) | DRG 788 ==
LOC: 4S1 21:14 → OPB 21:14 → 4S1 04-13 01:04 → 4S2 04-14 11:40
DX: Z37.0 Single live birth; Z3A.37 37 weeks gestation of pregnancy; Z14.1 Cystic fibrosis carrier; Z82.49 Family history of ischemic heart disease and other diseases of the circulatory system; O61.8 Other failed induction of labor; O13.4 Gestational [pregnancy-induced] hypertension without significant proteinuria, complicating childbirth